=== PATIENT | female | born 1945 | race Caucasian/White ===

== ENCOUNTER → 2018-09-23 13:22 | Outpatient (CLI) | payer OTHER ==
[~2018-09-23 13:22] MED LIST: LEVOXYL75 MCG; SIMVASTATIN20 MG; VASOTEC5 MG
== END | disposition home or self-care (01) ==
LOC: NUCLEAR 13:22
DX: I27.20 Pulmonary hypertension, unspecified (principal); I27.0 Primary pulmonary hypertension

== ENCOUNTER 2019-11-14 13:18 | Outpatient (CLI) | payer OTHER | END 2019-11-14 13:29 | disposition home or self-care (01) | LOC: MAMO-SONO 13:18 | PROVIDERS: ATTEND Specialist | DX: R92.8 Other abnormal and inconclusive findings on diagnostic imaging of breast (principal) ==

== ENCOUNTER 2019-11-24 11:03 | Outpatient (CLI) | payer OTHER | END 2019-11-24 11:18 | disposition home or self-care (01) | LOC: SONOGRAMA 11:03 | PROVIDERS: ATTEND Surgery | DX: N60.11 Diffuse cystic mastopathy of right breast (principal); N60.12 Diffuse cystic mastopathy of left breast; R92.0 Mammographic microcalcification found on diagnostic imaging of breast ==

== ENCOUNTER 2020-01-12 05:35 | Day surgery (SDC) | payer OTHER ==
[~2020-01-12 05:35] MED LIST changes: +CLONAZEPAM0.5 MG PO; +ENALAPRIL MALEA10 MG PO; +GABAPENTIN100 M2 PO; +LEVOXYL50 MCG PO; +ZOCOR40 MG PO
== END 2020-01-12 21:55 | disposition home or self-care (01) ==
LOC: CIR.AMB 05:35
PROVIDERS: ATTEND Surgery
DX: D05.12 Intraductal carcinoma in situ of left breast (principal); Z20.828 Contact with and (suspected) exposure to other viral communicable diseases

== ENCOUNTER → 2020-08-08 | Outpatient (CLI) | payer OTHER | END | disposition home or self-care (01) | LOC: NUCLEAR 01-12 07:00 → MAMO-SONO 08:07 | PROVIDERS: ATTEND Surgery | DX: Z12.31 Encounter for screening mammogram for malignant neoplasm of breast (principal); D05.12 Intraductal carcinoma in situ of left breast; N60.11 Diffuse cystic mastopathy of right breast; N60.12 Diffuse cystic mastopathy of left breast ==

== ENCOUNTER 2020-12-31 07:12 | Outpatient (CLI) | payer OTHER | END 2020-12-31 07:17 | disposition home or self-care (01) | LOC: RAD 07:12 | PROVIDERS: ATTEND Specialist | DX: R07.89 Other chest pain (principal); R91.1 Solitary pulmonary nodule ==

== ENCOUNTER 2021-08-12 08:00 | Outpatient (CLI) | payer OTHER | END 2021-08-12 08:02 | disposition home or self-care (01) | LOC: MAMO-SONO 08:00 | PROVIDERS: ATTEND Surgery | DX: D05.12 Intraductal carcinoma in situ of left breast (principal); N60.11 Diffuse cystic mastopathy of right breast; N60.12 Diffuse cystic mastopathy of left breast ==

== ENCOUNTER 2022-06-20 09:41 | Emergency (ER) | payer OTHER ==
[~2022-06-20] VITALS: Ht 154.9 cm; Wt 57.2 kg
== END 2022-06-20 13:18 ==
LOC: ER 09:41
DX: B34.9 Viral infection, unspecified (principal); Z85.3 Personal history of malignant neoplasm of breast; E78.49 Other hyperlipidemia; I10 Essential (primary) hypertension; E03.9 Hypothyroidism, unspecified; Z20.822 Contact with and (suspected) exposure to COVID-19

== ENCOUNTER 2023-02-13 09:25 | Inpatient (IN) | payer OTHER ==
[~2023-02-13] VITALS: Ht 154.9 cm; Wt 57.2 kg
[2023-02-13 10:29] LABS: HEMATOCRIT 39.2 % (36.0-45.00); HEMOGLOBIN 13.1 g/dL (12.0-15.00); MEAN CORPUSCULAR HEMOGLOBIN 31.4 pg (27.00-32.0); MEAN CORPUSCULAR HGB CONC 33.4 g/dl (32.0-36.0); PLATELET COUNT 262 K/uL (150-450); RED BLOOD COUNT 4.17 M/uL (4.00-6.00); RED CELL DISTRIBUTION WIDTH 13.6 % (11.5-14.5)
[2023-02-13 10:52] LABS: PH,URINE 5.5 (5.0-8.0); URINE APPEARANCE Clear; URINE BILIRRUBIN Negative (NEGATIVE); URINE BLOOD Negative; URINE COLOR Dark Yellow; URINE GLUCOSE Negative (NEGATIVE); URINE LEUKOCYTE Small; URINE NITRATE Negative; URINE PROTEIN 30 (NEGATIVE)
[2023-02-13 10:55] LABS: URINE BACTERIA 8.8 uL (0.0-1933); URINE EPITHELIAL CELLS 5.7 uL (0.0-38.8); URINE RBC 10.9 uL (0.0-20.8); URINE WBC 5.7 uL (0.0-23.2)
[2023-02-13 11:04] LABS: CALCIUM 9.6 mg/dL (8.5-10.1); CREATININE SERUM 0.93 mg/dL (0.55-1.02); GFR 58.46; POTASSIUM 4.28 mEq/L (3.5-5.1)
[2023-02-14 08:41] LABS: INR 1.06; PROTHROMBIN TIME 11.1 SECONDS (9.0-11.5)
[2023-02-14 08:47] LABS: PH,URINE 5.5 (5.0-8.0); URINE APPEARANCE Clear; URINE BILIRRUBIN Negative (NEGATIVE); URINE BLOOD Trace; URINE COLOR Yellow; URINE GLUCOSE Negative (NEGATIVE); URINE LEUKOCYTE Trace; URINE NITRATE Negative; URINE PROTEIN 30 (NEGATIVE); URINE UROBILINOGEN 0.2 E.U./dl
[2023-02-14 08:50] LABS: URINE BACTERIA 13.8 uL (0.0-1933); URINE EPITHELIAL CELLS 4.3 uL (0.0-38.8); URINE RBC 4.3 uL (0.0-20.8); URINE WBC 24.4 uL (0.0-23.2)
[2023-02-14 08:54] LABS: ALBUMIN 2.8 gm/dL (3.4-5.0); BILIRUBIN TOTAL 0.71 mg/dL (0.3-1.2); BILIRUBIN,CONJUGATED 0.22 mg/dL (0.0-0.2); BILIRUBIN,UNCONJUGATED 0.49 mg/dL (0.0-0.6); CHOL HDL RATIO 1.9 (0-5.0); CREATININE SERUM 0.8 mg/dL (0.55-1.02); GFR 69.55; GLOBULINA 2.7 G/DL (2.4-3.5); POTASSIUM 4.12 mEq/L (3.5-5.1); TOTAL PROTEIN 5.5 gm/dL (6.4-8.2); TSH 2.03 uIU/mL (0.358-3.74)
[2023-02-14 08:59] LABS: HEMATOCRIT 32.6 % (36.0-45.00); HEMOGLOBIN 11.1 g/dL (12.0-15.00); MEAN CELL VOLUME 95.1 fL (80.00-100.00); MEAN CORPUSCULAR HEMOGLOBIN 32.5 pg (27.00-32.0); MEAN CORPUSCULAR HGB CONC 34.2 g/dl (32.0-36.0); PLATELET COUNT 226 K/uL (150-450); RED BLOOD COUNT 3.42 M/uL (4.00-6.00); RED CELL DISTRIBUTION WIDTH 13.3 % (11.5-14.5)
[2023-02-14 09:12] LABS: C-REACTIVE PROTEIN 14.2 MG/DL (0.00-0.29)
[2023-02-14 09:44] LABS: ERYTHROCYTE SEDIMENTATION RATE 26 mm/hr
== END 2023-02-16 14:08 | disposition home or self-care (01) | DRG 392 ==
LOC: ER 09:25 → SURH 17:59 → MEDJ 17:59 → MEDI 21:18 → MEDJ 21:19 → SEC-K 21:30 → SURH 21:34
PROVIDERS: General Practice; ADMIT Internal Medicine; ATTEND Internal Medicine
PROC: BW21YZZ Computerized Tomography (CT Scan) of Abdomen and Pelvis using Other Contrast (ICD-10-PCS; principal; 2023-02-13)
DX: K57.32 Diverticulitis of large intestine without perforation or abscess without bleeding (principal); I10 Essential (primary) hypertension; E03.9 Hypothyroidism, unspecified; E78.5 Hyperlipidemia, unspecified; Z20.822 Contact with and (suspected) exposure to COVID-19